=== PATIENT | female | born 1945 | race Caucasian/White ===

== ENCOUNTER 2019-11-30 07:38 | Outpatient (CLI) | payer MEDICARE, OTHER ==
[2019-11-30 16:16] LABS: Hemoglobin 15.3 g/dL (12.0-16.0); Mean Corpuscular HGB CONC 38.9 g/dL (32.0-36.0); Mean Corpuscular Hemoglobin 34.8 pg (27.0-31.0); Mean Corpuscular Volume 89.6 fL (78.0-98.0); Mean Platelet Volume 8.2 fL (7.4-10.4); Platelet Count 258 thou/uL (130-400); RBC Distribution Width 12.8 % (11.5-14.5); Red Blood Cell (RBC) Count 4.41 mill/uL (4.20-5.40); White Blood Cell (WBC) Count 9.3 thou/uL (4.8-10.8)
[2019-11-30 16:40] LABS: PTT 34.2 sec (22.9-36.1); Prothrombin Time 13.1 sec (12.0-14.7)
[2019-12-01 16:05] LABS: SARS-CoV-2 MS2 Positive; SARS-CoV-2 N Gene Negative; SARS-CoV-2 S Gene Negative; SARS-CoV-2 by NAA Not Detected (NotDetected); SARS-CoV-2 orf1ab Negative
== END 2019-11-30 07:39 | disposition home or self-care (01) ==
LOC: LABBT 07:38
PROVIDERS: ATTEND Neurological Surgery
DX: Z01.812 Encounter for preprocedural laboratory examination (principal); Z20.828 Contact with and (suspected) exposure to other viral communicable diseases
CPT/HCPCS: 85027; 85610; 85730; U0003; 87635

== ENCOUNTER 2019-12-03 07:16 | Day surgery (SDC) | payer MEDICARE, OTHER ==
--- NOTE | 2019-12-01 20:28 | HP ---
REASON FOR CONSULTATION: Surgery on 12/03/2019. HISTORY OF PRESENT ILLNESS: Ms. Castro is a 73-year-old female with a chief complaint of lower back and left leg pain. Her left leg now has some quad weakness with some right radicular distribution as well. She has tried lumbar spinal epidural injections and physical therapy with no long-lasting relief. She denies bladder or bowel dysfunction. REVIEW OF SYSTEMS: CONSTITUTIONAL: Denies fever or chills. ENT: Denies change in vision or hearing. CARDIAC: Denies chest pain, shortness of breath, or diaphoresis. PULMONARY: Denies shortness of breath, cough, or hemoptysis. GI: Denies abdominal pain, nausea, vomiting, diarrhea, change in stool formation and consistency. : Denies trouble with urination, frequency of urination, or bloody urine. SKIN: Denies skin rash, bruising, bleeding, or skin masses. MUSCULOSKELETAL: As per history of present illness. NEUROLOGIC: As per history of present illness. PSYCHOLOGICAL: Denies anxiety, depression, or behavior changes. MEDICAL HISTORY: Hypercholesterolemia, chronic pain, depression, diabetes, glaucoma, and headaches. SURGICAL HISTORY: Oophorectomy, appendectomy, bunion surgery, cataracts, gallbladder, carpal tunnel, anterior/posterior decompression, and fusion at L5- S1 in 2001. HOSPITALIZATIONS: As above surgeries. MEDICATIONS: Glyburide, Jardiance, Humalog insulin, sertraline, rosuvastatin, potassium chloride, metformin, duloxetine, ferrous sulfate, amitriptyline, calcium, Zyloprim, Q10, D3, aspirin, antacid, stool softeners, acetaminophen, naproxen, tramadol, butalbital, acetaminophen, caffeine, also known as Fioricet, cyclobenzaprine. ALLERGIES: NO KNOWN DRUG ALLERGIES. SOCIAL HISTORY: Former smoker. Denies illicit drugs or alcohol use. FAMILY HISTORY: Father , diagnosed with hypertension. Mother , diagnosed with hypertension. PHYSICAL EXAMINATION: VITAL SIGNS: Height 5 feet and 2 inches, weight 172 pounds. HEENT: Pupils are equal. Extraocular movements are intact. NECK: Soft and supple. No masses are noted. Range of motion is intact and nonpainful. NEUROLOGICAL: Awake, alert, and oriented x3. Memory, attention, and fund of knowledge normal. Cranial nerves grossly intact. Gait and station are slow, but normal. Motor exam, mild left quad weakness. Sensory exam, mild left L4 numbness. IMAGING STUDIES: L-spine MRI, left L3-L4 herniated lumbar disk (HLD) with inferior migration under L4 root. L-spine x-ray, flexion and extension stable. 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 PLAN: 1. L3-L4 laminectomy, left microdiskectomy, and a right foraminotomy. 2. Preop labs, CBC, PT, PTT, and COVID-19. 3. Anesthesia clearance. INFORMED CONSENT: We discussed the indications, risks, benefits, alternatives, and expected results from surgery. The risks discussed included, but were not limited to bleeding, infection, CSF leak, nerve damage, weakness, incontinence, cauda equina injury, arachnoiditis, paralysis, ventilator dependency, wheelchair dependency, loss of vision, cardiopulmonary complications of anesthesia, or . Long-term complications discussed included, but were not limited to spinal instability and future surgery. She understands the risks and is willing to proceed. Job ID: [id number] [facility]
[2019-12-02 10:21] VITALS: BMI 30.9
[2019-12-03 08:33] LABS: Anion Gap 16 mmol/L (10-20); BUN (Urea Nitrogen) 11 mg/dL (9.8-20.1); Calc. Creatinine Clearance 85 mL/min (70-130); Calcium 10.3 mg/dL (7.8-10.44); Carbon Dioxide 23 mmol/L (23-31); Chloride 101 mmol/L (98-107); Estimated GFR-MDRD 75; Glucose 149 mg/dL (83-110); Potassium 4.4 mmol/L (3.5-5.1); Sodium 136 mmol/L (136-145)
[2019-12-03] MEDS ORDERED: Thrombin 5000 UNITS/5 ML VIAL ONE (09:08)
[2019-12-03] MEDS ORDERED: Bupivacaine HCl 0.5%/Epinephrine 1:200,000/PF 30 ml Vial ONE (09:08)
[2019-12-03] MEDS ORDERED: Fentanyl 100 MCG/2 ML VIAL ONE ×3 (10:00→13:30)
[2019-12-03] MEDS ORDERED: Midazolam HCl 2 mg/2 ml Vial ONE (10:07)
[2019-12-03] MEDS ORDERED: Ketamine 50 MG/ML (10ML VIAL) ONE (10:07)
[2019-12-03] MEDS ORDERED: HYDROmorphone 0.5 MG/0.5 ML SYRINGE ONE (10:08)
[2019-12-03] MEDS ORDERED: Phenylephrine 10 MG/ML VIAL ONE (10:53)
[2019-12-03] MEDS ORDERED: Promethazine HCl 25 MG/ML VIAL SLOW IVP PRN (11:31)
[2019-12-03] MEDS ORDERED: HYDROmorphone 2 MG/ML VIAL SLOW IVP PRN (11:31)
[2019-12-03] MEDS ORDERED: Ondansetron HCl/PF 4 MG/2 ML Vial IVP PRN (11:31)
[2019-12-03] MEDS ORDERED: EPHEDRINE 25 MG/5 ML SYRINGE ONE (11:49)
[2019-12-03] MEDS ORDERED: Glycopyrrolate 0.2 MG/ML 5 ML SYRINGE ONE (11:49)
[2019-12-03] MEDS ORDERED: Calcium Chloride 1 GM/10 ML Abboject SYRINGE ONE (11:49)
[2019-12-03] MEDS ORDERED: Ketorolac Tromethamine 30 MG/ML VIAL ONE (11:49)
[2019-12-03] MEDS ORDERED: Ondansetron PF 4 MG/2 ML Vial ONE (11:49)
[2019-12-03] MEDS ORDERED: Dexamethasone 20 MG/5 ML VIAL ONE (11:49)
[2019-12-03] MEDS ORDERED: Lidocaine 1% PF 5 ML VIAL ONE (11:49)
[2019-12-03] MEDS ORDERED: PROPOFOL 200 MG/20 ML VIAL ONE (11:49)
[2019-12-03] MEDS ORDERED: PHENYLEPHRINE-NS 100 MCG/ML 10 ML SYRINGE ONE (11:49)
[2019-12-03] MEDS ORDERED: Rocuronium Bromide 10 MG/ML (10ML VIAL) ONE (11:49)
--- NOTE | 2019-12-03 17:31 | OP ---
DATE OF PROCEDURE: 12/03/2019 SYSTEMS INTEGRATOR: Tramaine Fleming PA-C. PREOPERATIVE INDICATION: Treat pain and prevent neurological deterioration. PREOPERATIVE DIAGNOSES: Lumbar intervertebral disk disease with foraminal stenosis and lateral recess stenosis and lumbar radiculopathies. POSTOPERATIVE DIAGNOSES: Lumbar intervertebral disk disease with foraminal stenosis and lateral recess stenosis and lumbar radiculopathies. PROCEDURES PERFORMED: Decompressive laminectomy, medial facetectomy, foraminotomy, L3-L4, bilateral; left microdiskectomy, L3-L4. PREOPERATIVE MEDICATIONS: Ancef 2 g IV. DRAIN NUMBER: Zero. DRAIN TYPE: None. DESCRIPTION OF PROCEDURE: The patient was brought to the operating room. General endotracheal anesthesia was induced. The patient was positioned prone on the Damien frame with the appropriate padding for the chest and hips. A lateral fluoro radiograph was used to plan our incision. The lumbar skin was sterilely prepped and draped. We opened with a 10 blade knife and controlled bleeding with bipolar and monopolar cautery. We used monopolar cautery to dissect through subcutaneous tissues to the thoracodorsal fascia. We incised the fascia in midline and reflected paraspinal muscles off the spinous process and lamina of L4 and L5. A self-retaining retractor was placed and a lateral fluoro radiograph confirmed the levels upon which we were operating. We then used an Adson rongeur to remove the spinous process of L3 and the top of L4. We used Kerrison rongeurs to fashion a laminectomy down the midline. There was more compression than predicted by the preoperative scans. We widened our laminectomy defect until we were flushed with the pedicles of L3 and L4. We had to perform medial facetectomies on both sides to decompress the lateral recesses over the L4 nerve roots. We performed foraminotomies over the exiting L3 and L4 nerve roots and once our decompression was secured, we brought the operating microscope into the field. Under microscopic magnification and using microsurgical techniques, we carefully mobilized the thecal sac medially from the left toward the midline. We identified a disk protrusion in the posterolateral recess. We incised the protruding disk and removed disk contents using curettes and pituitary rongeurs. We reached into the interspace and removed loose fragments of disk from the interspace itself. The remaining disk was firmly adherent to the endplates. We irrigated with bacitracin irrigation. We made sure the left L4 nerve root was no longer stretched. We infused local anesthetic in the paraspinal muscles. We waxed the bone edges. We controlled bleeding. We irrigated with bacitracin irrigation once again. We treated the wound with vancomycin powder and we closed in anatomical layers. We applied a sterile dressing. This was a clean case, no contamination. Job ID: [id number]
== END 2019-12-03 15:45 | disposition home or self-care (01) ==
LOC: SDC 07:16
PROVIDERS: ATTEND Neurological Surgery
PROC: 00NY0ZZ Release Lumbar Spinal Cord, Open Approach (ICD-10-PCS; principal; 2019-12-03)
PROC: 0ST20ZZ Resection of Lumbar Vertebral Disc, Open Approach (ICD-10-PCS; 2019-12-03)
DX: M51.26 Other intervertebral disc displacement, lumbar region (principal); M51.16 Intervertebral disc disorders with radiculopathy, lumbar region; E11.9 Type 2 diabetes mellitus without complications; E78.00 Pure hypercholesterolemia, unspecified; E78.5 Hyperlipidemia, unspecified; F32.9 Major depressive disorder, single episode, unspecified; G47.30 Sleep apnea, unspecified; Z79.4 Long term (current) use of insulin; Z79.82 Long term (current) use of aspirin; Z79.899 Other long term (current) drug therapy; Z87.891 Personal history of nicotine dependence; Z01.812 Encounter for preprocedural laboratory examination; Z20.828 Contact with and (suspected) exposure to other viral communicable diseases
CPT/HCPCS: 63047; 76000; 80048; 82962; Z7982; Z7984; 36416; J0690; J1100; J1170; J1885; J2250; J2370; J2405; J2704; J3010; J3370; J3490